=== PATIENT | male | born 1965 | race Caucasian/White ===

== ENCOUNTER 2024-09-21 19:07 | Emergency (ER) | payer OTHER ==
[~2024-09-21] VITALS: Ht 172.7 cm; Wt 71.0 kg
[2024-09-21 19:11] VITALS: BP 157/76; PULSE 80; RESP 16; TEMP 36.8; O2SAT 98
== END 2024-09-21 20:18 | disposition left against medical advice (07) ==
LOC: ER 19:07
DX: R51.9 Headache, unspecified (principal); Z53.21 Procedure and treatment not carried out due to patient leaving prior to being seen by health care provider; W10.8XXA Fall (on) (from) other stairs and steps, initial encounter; Y93.89 Activity, other specified; Y92.89 Other specified places as the place of occurrence of the external cause; Y99.8 Other external cause status